=== PATIENT | female | born 1995 | race Caucasian/White ===

== ENCOUNTER 2016-07-23 00:07 | Emergency (ER) | payer OTHER ==
[~2016-07-23] VITALS: Ht 170.2 cm; Wt 66.7 kg
[~2016-07-23 00:07] MED LIST: FERROUS GLUCON324 MG PO; MOTRIN800 MG PO; PRENATAL VITAMI1 T10 PO
[2016-07-23 00:21] VITALS: BP 120/72
--- NOTE | 2016-07-23 01:25 | NUR ---
PT TAKEN TO BED 8
--- NOTE | 2016-07-23 01:30 | NUR ---
21YO FEMALE PATIENT PRESENTS TO ED WITH C/O PAIN ACROSS UPPER ABDOMIN RADIATING TO RT SIDE AND BACK X1 DAY. DENIES N/V/D; SKIN IS PINK/WARM/DRY; AAOX4 WITH EVEN AND STEADY GAIT; LUNGS CLEAR BL; HR EVEN AND REGULAR; PT DENIES ANY CP, SOB, OR COUGH AT THIS TIME; PATIENT STATES PAIN OF 9/10 AT THIS TIME; VSS; PATIENT POSITIONED FOR COMFORT; HOB ELEVATED; BEDRAILS UP X2; BED DOWN. ER MD MADE AWARE OF PT STATUS.
--- NOTE | 2016-07-23 01:55 | NUR ---
Dr. Velasquez evaluating patient at bedside.
[2016-07-23] MEDS ORDERED: LIDOCAINE VISCOUS 2% 20 ML UDC PO ONE (02:05)
[2016-07-23] MEDS ORDERED: ALUMINUM HYD/MAG/SIMETHICONE 30 ML UDC PO ONE (02:05)
[2016-07-23 03:58] VITALS: BP 112/62
--- NOTE | 2016-07-23 03:58 | NUR ---
Patient discharged with v/s stable. Written and verbal after care instructions given and explained. Patient alert, oriented and verbalized understanding of instructions. Ambulatory with steady gait. All questions addressed prior to discharge. ID band removed. Patient advised to follow up with PMD. Rx of Maalox and Prilosec given. Patient educated on indication of medication including possible reaction and side effects. Opportunity to ask questions provided and answered.
== END 2016-07-23 03:58 | disposition home or self-care (01) ==
LOC: MED 00:07
DX: K29.00 Acute gastritis without bleeding (principal); R03.0 Elevated blood-pressure reading, without diagnosis of hypertension; J45.909 Unspecified asthma, uncomplicated

== ENCOUNTER 2019-05-25 22:58 | Emergency (ER) | payer OTHER ==
[~2019-05-25] VITALS: Ht 167.6 cm; Wt 73.9 kg
[2019-05-25 23:07] VITALS: BP 121/65
--- NOTE | 2019-05-25 23:08 | NUR ---
PT TAKEN TO BED 10
--- NOTE | 2019-05-25 23:35 | NUR ---
24 YO F BIB PRESENTS TO ED C/O 10/10 BURNING EPIGASTRIC PAIN SINCE THIS MORNING ACCOMPANIED BY INTERMITTENT NAUSEA. REPORTS VOMITING X 1 THIS MORNING. ALSO C/O BODY ACHES AND CHILLS. PT STATES ASTHMA HAS BEEN ACTING UP. LUNGS CTA. SPO2 WNL. ABD IS SOFT, FLAT, NON TENDER. BOWEL SOUNDS ACTIVE +4. PMH-- GASTRIC ULCER, ASTHMA
[2019-05-25] MEDS ORDERED: DICYCLOMINE HCL LIQUID 20 MG, ALUMINUM HYD/MAG/SIMETHICONE 30 ML, LIDOCAINE VISCOUS 2% ... PO ONE ×3 (23:45)
[2019-05-25] MEDS ORDERED: ALUMINUM HYD/MAG/SIMETHICONE 30 ML UDC ONE (23:49)
[2019-05-25] MEDS ORDERED: DICYCLOMINE HCL LIQUID 10 MG/5 ML UDC ONE (23:49)
[2019-05-25] MEDS ORDERED: LIDOCAINE VISCOUS 2% 20 ML UDC ONE (23:49)
--- NOTE | 2019-05-25 23:55 | NUR ---
MEDICATED WITH GI COCKTAIL FOR 10/10 EPIGASTRIC PAIN. WILL REASSESS.
--- NOTE | 2019-05-26 00:05 | NUR ---
PT THREW UP GI COCKTAIL. DR. CARREON MADE AWARE.
[2019-05-26] MEDS ORDERED: ONDANSETRON 4 MG ODT PO ONE (00:15)
[2019-05-26] MEDS ORDERED: KETOROLAC 60 MG/2 ML VIAL IM ONE (00:15)
[2019-05-26] MEDS ORDERED: MORPHINE SULFATE 4 MG/ML SYR IM ONE (01:10)
--- NOTE | 2019-05-26 01:23 | NUR ---
PT WAS PREVIOUSLY MEDICATED WITH 30 MG IM TORADOL. PT REPORTS NO PAIN RELIEF. MEDICATED WITH 4 MG IM MORPHINE FOR 8/ EPIGASTRIC PAIN. WILL REASSESS.
[2019-05-26 01:55] VITALS: BP 118/56
--- NOTE | 2019-05-26 01:55 | NUR ---
Patient discharged with v/s stable. Written and verbal after care instructions given and explained. Patient alert, oriented and verbalized understanding of instructions. Ambulatory with steady gait. All questions addressed prior to discharge. ID band removed. Patient advised to follow up with PMD. Rx of Zofran, Motrin, Prilosec and [place] given. Patient educated on indication of medication including possible reaction and side effects. Opportunity to ask questions provided and answered.
== END 2019-05-26 01:55 | disposition home or self-care (01) ==
LOC: MED 22:58
DX: R10.13 Epigastric pain (principal); R11.2 Nausea with vomiting, unspecified; R19.7 Diarrhea, unspecified; J45.909 Unspecified asthma, uncomplicated; Z87.448 Personal history of other diseases of urinary system; Z88.8 Allergy status to other drugs, medicaments and biological substances
CPT/HCPCS: 81002; 96372; 99283; J1885; J2270; Q0162

== ENCOUNTER 2019-06-24 21:43 | Emergency (ER) | payer OTHER ==
[~2019-06-24] VITALS: Ht 167.6 cm; Wt 61.2 kg
[2019-06-24 21:57] VITALS: BP 119/65
--- NOTE | 2019-06-24 22:00 | NUR ---
24 YEAR OLD FEMALE COMPLAINS OF RED BUMPS ALONG SCALP FOR THE PAST 3 DAYS. RED BUMPS VISIBLE ALONG SCALP. PATIENT AOX4, BREATHING EVEN AND UNLABORED, SKIN WARM AND DRY. BED IN LOWEST POSITION, LOCKED, BED RAIL UPX1. FRIEND AT BEDSIDE. PMH - ASTHMA, GASTRITIS ALLERGIES - BENADRYL
[2019-06-24 23:15] VITALS: BP 119/65
--- NOTE | 2019-06-24 23:15 | NUR ---
Patient discharged with v/s stable. Written and verbal after care instructions about shingles given and explained. Patient alert, oriented and verbalized understanding of instructions. Ambulatory with steady gait. All questions addressed prior to discharge. ID band removed. Patient advised to follow up with PMD. Rx of acyclovir, naprosyn, and acetaminophen given. Patient educated on indication of medication including possible reaction and side effects. Opportunity to ask questions provided and answered.
== END 2019-06-24 23:15 | disposition home or self-care (01) ==
LOC: MED 21:43
DX: R21 Rash and other nonspecific skin eruption (principal); F41.9 Anxiety disorder, unspecified; F32.9 Major depressive disorder, single episode, unspecified; J45.909 Unspecified asthma, uncomplicated; F43.10 Post-traumatic stress disorder, unspecified; Z88.8 Allergy status to other drugs, medicaments and biological substances
CPT/HCPCS: 99283

== ENCOUNTER 2019-07-11 22:56 | Emergency (ER) | payer OTHER ==
[~2019-07-11] VITALS: Ht 165.1 cm; Wt 71.7 kg
[2019-07-11 23:00] VITALS: BP 130/88
[2019-07-11 23:08] VITALS: BP 130/88
== END 2019-07-11 23:14 | disposition home or self-care (01) ==
LOC: MED 22:56
DX: N64.4 Mastodynia (principal); J45.909 Unspecified asthma, uncomplicated; Z87.448 Personal history of other diseases of urinary system; Z88.8 Allergy status to other drugs, medicaments and biological substances
CPT/HCPCS: 99281; 99283

== ENCOUNTER 2020-02-28 13:07 | Emergency (ER) | payer OTHER ==
[~2020-02-28] VITALS: Ht 170.2 cm; Wt 67.6 kg
[2020-02-28 13:25] VITALS: BP 109/68
[2020-02-28 14:27] VITALS: BP 109/68
== END 2020-02-28 14:27 | disposition home or self-care (01) ==
LOC: MED 13:07
DX: H00.012 Hordeolum externum right lower eyelid (principal); J45.909 Unspecified asthma, uncomplicated; Z88.8 Allergy status to other drugs, medicaments and biological substances
CPT/HCPCS: 99283

== ENCOUNTER 2021-11-15 13:16 | Inpatient (IN) | payer OTHER ==
[~2021-11-15] VITALS: Ht 170.2 cm; Wt 87.1 kg
[~2021-11-15 13:16] MED LIST changes: -FERROUS GLUCON324 MG PO; -MOTRIN800 MG PO; +NITR100C7 PO; -PRENATAL VITAMI1 T10 PO; +PYR100 PO
[2021-11-15] MEDS ORDERED: METHYLERGONOVINE 0.2 MG/ML AMP IM PRN (14:00)
[2021-11-15] MEDS ORDERED: OXYTOCIN 20 UNITS in LACTATED RINGERS 1,000 ML IV SCH (14:00)
[2021-11-15 14:16] LABS: APPEARANCE,URINE SL CLOUDY (CLEAR); BILIRUBIN,URINE NEGATIVE (NEGATIVE); BLOOD, URINE NEGATIVE (NEGATIVE); COLOR,URINE YELLOW (YELLOW); LEUKOCYTE ESTERASE ,URINE 2+ (NEGATIVE); NITRITE, URINE NEGATIVE (NEGATIVE); UGLUCOSE NEGATIVE (NEGATIVE)
[2021-11-15 14:34] LABS: BASOPHILS % (AUTO) 0.3 % (0.0-2.0); EOSINOPHILS % (AUTO) 0.3 % (0.0-4.0); HEMATOCRIT 25.2 % (36-48); HEMOGLOBIN 8.1 g/dL (12.0-16.0); LYMPHOCYTES # (AUTO) 1.3 K/uL (2.5-16.5); LYMPHOCYTES % (AUTO) 15.8 % (20.5-51.1); MEAN CORPUSCULAR HEMOGLOBIN 24 pg (27-31); MEAN CORPUSCULAR HGB CONC 32 g/dL (33-37); MEAN CORPUSCULAR VOLUME 74.7 fL (80-94); MONOCYTES # (AUTO) 0.5 K/uL (0.8-1.0); MONOCYTES % (AUTO) 6.2 % (1.7-9.3); NEUTROPHILS # (AUTO) 6.5 K/uL (1.8-7.7); NEUTROPHILS % (AUTO) 77.4 % (42.2-75.2); PLATELET COUNT (AUTO) 221 K/uL (140-450); RED BLOOD CELL COUNT(AUTO) 3.38 MIL/uL (4.20-5.40); RED CELL DISTRIBUTION WIDTH 17.1 % (11.6-13.7); WHITE BLOOD COUNT (AUTO) 8.5 K/uL (4.8-10.8)
[2021-11-15 14:54] LABS: ALBUMIN 2.5 g/dL (3.4-5.0); ANION GAP 11.3 (8-16); CARBON DIOXIDE 23.2 mmol/L (21-32); CREATININE 0.4 mg/dL (0.6-1.3); POTASSIUM 3.5 mmol/L (3.5-5.1); TOTAL BILIRUBIN 0.2 mg/dL (0.0-1.0)
[2021-11-15 14:57] LABS: OTHER CASTS, URINE None Seen /LPF (None Seen); RBC,URINE 0-5 /HPF (0-5)
[2021-11-15] MEDS ORDERED: MISOPROSTOL 25 MCG TAB ONE (14:59)
[2021-11-15 15:07] LABS: PROTHROMBIN TIME 9.9 secs (10.8-13.4)
[2021-11-15] MEDS: LACTATED RINGERS 500 ML IV SCH ×4 (15:15→22:10)
[2021-11-15] MEDS: MISOPROSTOL 25 MCG TAB VG SCH ×2 (15:48→20:08)
[2021-11-15 16:08] VITALS: BP 122/67
[2021-11-16] MEDS: LACTATED RINGERS 500 ML IV SCH ×3 (02:30→10:37)
[2021-11-16] MEDS: ONDANSETRON 4 MG/2 ML VIAL IVP PRN ×2 (04:12→12:05)
[2021-11-16] MEDS: MORPHINE SULFATE 10 MG/ML VIAL IVP PRN ×2 (04:14→09:13)
--- NOTE | 2021-11-16 09:00 | NUR ---
PATIENT HAS BEEN SCREENED AND CATEGORIZED LOW NUTRITION RISK. PATIENT WILL BE SEEN WITHIN 7 DAYS OF ADMISSION. 11/22/[address]
[2021-11-16 09:13] VITALS: BP 124/73
[2021-11-16] MEDS ORDERED: ROPIVACAINE 0.2%/NS PREMIX 200 ML EPI ONE (13:27)
[2021-11-16] MEDS ORDERED: fentaNYL citrate 0.05 MG/ML VIAL ONE (13:27)
[2021-11-16] MEDS ORDERED: OXYTOCIN 20 UNITS/LR PREMIX 1,000 ML IV ONE (14:44)
[2021-11-16] MEDS ORDERED: BENZOCAINE/MENTHOL 20%-0.5% 60 GM CAN TP PRN (17:30)
[2021-11-16] MEDS ORDERED: OXYTOCIN 10 UNITS/ML VIAL IM PRN (17:30)
[2021-11-16] MEDS ORDERED: TEMAZEPAM 15 MG CAP PO PRN (17:30)
[2021-11-16] MEDS ORDERED: IBUPROFEN 800 MG TAB PO PRN (17:30)
[2021-11-16] MEDS ORDERED: METHYLERGONOVINE 0.2 MG/ML AMP IM PRN (17:30)
[2021-11-16] MEDS ORDERED: METHYLERGONOVINE 0.2 MG TAB PO PRN (17:30)
[2021-11-16] MEDS ORDERED: oxyCODONE/APAP 5/325 MG 1 TAB TAB PO PRN (17:30)
[2021-11-16] MEDS ORDERED: DOCUSATE SOD/SENNA 50/8.6 MG 1 TAB PO SCH (21:00)
[2021-11-17] MEDS: oxyCODONE/APAP 5/325 MG 1 TAB TAB PO PRN ×3 (00:52→20:03)
[2021-11-17 09:00] LABS: HEMATOCRIT 26.2 % (36-48); HEMOGLOBIN 8.2 g/dL (12.0-16.0)
[2021-11-18] MEDS: oxyCODONE/APAP 5/325 MG 1 TAB TAB PO PRN ×2 (04:33→10:34)
== END 2021-11-18 14:20 | disposition home or self-care (01) | DRG 560 ==
LOC: MLD 13:16 → MFCC 11-16 20:41
PROVIDERS: ADMIT Obstetrics & Gynecology; ATTEND Obstetrics & Gynecology
PROC: 10D07Z6 Extraction of Products of Conception, Vacuum, Via Natural or Artificial Opening (ICD-10-PCS; principal; 2021-11-16)
PROC: 3E0S3BZ Introduction of Anesthetic Agent into Epidural Space, Percutaneous Approach (ICD-10-PCS; 2021-11-16)
PROC: 00HU33Z Insertion of Infusion Device into Spinal Canal, Percutaneous Approach (ICD-10-PCS; 2021-11-16)
DX: O99.12 Other diseases of the blood and blood-forming organs and certain disorders involving the immune mechanism complicating childbirth (principal); Z37.0 Single live birth; M32.9 Systemic lupus erythematosus, unspecified; Z3A.38 38 weeks gestation of pregnancy; Z20.822 Contact with and (suspected) exposure to COVID-19
CPT/HCPCS: 36415; 51702; 59200; 76815; 80053; 81001; 85018; 85025; 85610; 85730; 86592; 86762; 86886; 86900; 86901; 87086; 87340; J2270; J2405; J2590; J2795; J3010; J7120; Q0092